=== PATIENT | female | born 1975 | race Caucasian/White ===

== ENCOUNTER 2018-08-03 10:40 | Outpatient (CLI) | payer OTHER ==
--- NOTE | 2018-08-03 19:52 | Diagnostic Imaging Report ---
ELZBIETA DAVIS [facility] [address] [facility] [address] [address] Report Submission Date: Aug 03, 2018 11:01:51 AM CDT Patient Study Name: REY QUINONES Date: Aug 03, 2018 10:41:05 AM CDT Modality Type: DX Gender: F Description: UPPER EXTREMITY : 75 Institution: [facility] Physician: ELZBIETA DAVIS Examination: Plain film right hand History: RT HAND, PAIN AT BASE OF RT THUMB INTO WRIST AFTER INJURY 2 DAYS AGO (Hx) Comparison exams: None available Findings: 3 views of the right hand demonstrate normal cortical margins. No fracture. No dislocation. No soft tissue abnormality. Impression: No acute osseous abnormality Electronically signed on Aug 03, 2018 11:01:51 AM CDT by: Aldo DE LOS SANTOS
== END 2018-08-03 10:42 ==
LOC: RAD 10:40
PROVIDERS: ATTEND Physician Assistant
DX: S69.91XA Unspecified injury of right wrist, hand and finger(s), initial encounter (principal); X58.XXXA Exposure to other specified factors, initial encounter; Y92.9 Unspecified place or not applicable; Y93.9 Activity, unspecified; Y99.9 Unspecified external cause status
CPT/HCPCS: 73130